=== PATIENT | male | born 1975 | race African-American/Black ===

== ENCOUNTER 2016-05-28 10:25 | Emergency (ER) | payer OTHER ==
[~2016-05-28] VITALS: Ht 182.9 cm; Wt 129.3 kg
[~2016-05-28 10:25] MED LIST: AUGMENTIN 875 M1 TAB PO; PREDNICOT20 MG PO; TESSALON PERLE100 MG PO
[2016-05-28 10:28] VITALS: BP 138/86
[2016-05-28] MEDS ORDERED: ORPHENADRINE C100 MG PO (11:42)
[2016-05-28] MEDS ORDERED: ULTRAM50 M1 PO (11:42)
[2016-05-28] MEDS ORDERED: NAPROSYN500 M1 PO (11:42)
--- NOTE | 2016-05-28 11:44 | ED NECK/BACK PAIN COMPLAINT ---
History of Present Illness General Chief Complaint: Low Back Pain/Injury Stated Complaint: LOWER BACK PAIN Source: patient Exam Limitations: no limitations Vital Signs & Intake/Output Vital Signs & Intake/Output Vital Signs Date Time Temp Pulse Resp B/P Pulse O2 O2 Flow FiO2 Ox Delivery Rate 05/28 1028 96.9 105 20 138/86 98 Room Air Allergies Coded Allergies: NO KNOWN ALLERGIES (04/06/14) Reconcile Medications AMOXICILLIN/POTASSIUM CLAV (Augmentin 875-125 Tablet) 875 MG/125 MG TAB 1 TAB PO BID SINUSITIS Benzonatate (Tessalon Perle) 100 MG CAPSULE 1 TAB PO TID COUGH Prednisone (Prednicot) 20 MG TAB 2 TAB PO DAILY SORE THROAT Triage Note: PT TO ED C/O LOW BACK PAIN X 1.5 WEEKS. DENIES ANY OBVIUOS INJURY. PAIN RADIATES DOWN B/L LEGS. HAS BEEN TAKING MOTRIN WITH NO RELIEF. Triage Nurses Notes Reviewed? yes HPI: Patient presents for evaluation of a bilateral low back pain that began suddenly about 2 weeks ago after picking up a car engine. He states the pain has been more or less constant but fluctuates in intensity and gets worse with exertion. It reaches a 10 out of 10 in intensity. He states he has an appointment pending with an career information specialist in 2 weeks. He denies urinary or fecal incontinence or urinary retention or saddle paresthesias. He's been taking 600 mg of ibuprofen without relief. The pain is described as a sharp pain that does not radiate. He denies any prior episodes of back pain. Past History Travel History Traveled to [place] past 21 day No Medical History Any Pertinent Medical History? see below for history Endocrine: diabetes Surgical History Surgical History: non-contributory Psychosocial History What is your primary language Malay Tobacco Use: Current Not Daily ETOH Use: denies use Illicit Drug Use: denies illicit drug use Family History Hx Contributory? No Review of Systems Review of Systems Constitutional: Reports: no symptoms. Eyes: Reports: no symptoms. Ears, Nose, Throat, Mouth: Reports: no symptoms. Respiratory: Reports: no symptoms. Cardiovascular: Reports: no symptoms. Gastrointestinal/Abdominal: Reports: no symptoms. Musculoskeletal: Reports: see HPI. Skin: Reports: no symptoms. Neurological/Psychological: Reports: no symptoms. All Other Systems: Reviewed and Negative Physical Exam Physical Exam Neck: SEE BELOW Comments: Gen.: Well-nourished, well-developed, no acute respiratory distress. Head: Normocephalic, atraumatic. Eyes: Normal inspection bilaterally Ears: Normal inspection bilaterally Nose: Normal inspection, nasal cannula in place Throat/mouth : Moist mucosa Neck: Supple, full range of motion, no goiter Heart: Regular rate and rhythm Lungs: Quiet respirations Back: Decreased range of motion due to pain, tenderness of the sacroiliac joints bilaterally without associated soft tissue swelling or ecchymoses. Extremities: Normal lower extremity strength and deep tendon reflexes and sensation to light touch bilaterally (no saddle paresthesia). Straight leg raise test negative Neurologic: Cranial nerves grossly intact, speech is clear Skin: warm and dry Psychiatric: Calm, cooperative, no apparent delusions or hallucinations Progress Differential Diagnosis: cauda equina syn, herniated disc, myofascial strain Plan of Care: See discharge instructions Comments: Patient denies cancer unexplained weight loss or immunosuppression, denies IV drug abuse urinary tract infection history of cancer or recent trauma. Denies pain increased by rest or associated fever. Denies bowel or bladder incontinence or urinary retention. Denies saddle paresthesias or major motor weakness. Departure Departure Disposition: HOME OR SELF CARE Condition: Stable Clinical Impression Primary Impression: Low back strain Qualifiers: Encounter type: initial encounter Qualified Code: S39.012A - Strain of muscle, fascia and tendon of lower back, initial encounter Referrals: CRISPIN RAZO MD (PCP/Family) Additional Instructions: Medications as prescribed. Rest, no exertion or heavy lifting. Follow-up with the orthopedic doctor as soon as possible for reevaluation and further testing is indicated. Return if any concerns or sudden worsening. Departure Forms: Customer Survey General Discharge Information Prescriptions: Current Visit Scripts Naproxen (Naprosyn) 1 TAB PO BID #20 TAB Orphenadrine Citrate 1 TAB PO BIDP PRN MUSCLE SPASMS #20 TAB Tramadol HCl (Ultram) 1-2 TAB PO Q6P PRN PAIN #10 TAB
[2016-05-28] MEDS ORDERED: GLIMEPIRIDE1 M1 PO (11:50)
[2016-05-28] MEDS ORDERED: PANTOPRAZOLE SO40 M1 PO (11:51)
== END 2016-05-28 11:55 ==
LOC: ERH 10:25
DX: S39.012A Strain of muscle, fascia and tendon of lower back, initial encounter (principal); X50.0XXA Overexertion from strenuous movement or load, initial encounter; Y93.89 Activity, other specified

== ENCOUNTER 2017-05-26 11:25 | Emergency (ER) | payer OTHER ==
[~2017-05-26] VITALS: Ht 182.9 cm; Wt 102.1 kg
[~2017-05-26 11:25] MED LIST changes: +CHERATUSSIN AC118 M1 PO; +GLIMEPIRIDE1 M1 PO; +NAPROSYN500 M1 PO; +ORPHENADRINE C100 MG PO; +PANTOPRAZOLE SO40 M1 PO; +ULTRAM50 M1 PO; +ZITHROMAX250 M2 PO
[2017-05-26 11:53] VITALS: BP 128/79
--- NOTE | 2017-05-26 12:04 | ED GENERAL ADULT ---
See Addendum History of Present Illness General Chief Complaint: Upper Respiratory Sx/Fever Stated Complaint: URI Source: patient Exam Limitations: no limitations Vital Signs & Intake/Output Vital Signs & Intake/Output Vital Signs Date Time Temp Pulse Resp B/P B/P Pulse O2 O2 Flow FiO2 Mean Ox Delivery Rate 05/26 1153 98.0 94 18 128/79 99 Room Air Allergies Coded Allergies: NO KNOWN ALLERGIES (04/06/14) Reconcile Medications Azithromycin (Zithromax) 250 MG TABLET 1 DP PO AD URI 2 the first day followed by 1 for days 2-5 Codeine Phosphate/Guaifenesi (Cheratussin AC Syrup) 10 MG-100 MG/5 ML LIQUID 10 ML PO Q4-6H PRN COUGH Glimepiride 1 MG TABLET 1 TAB PO DAILY DM (Reported) Pantoprazole Sodium 40 MG TABLET.DR 1 TAB PO DAILY GI (Reported) Triage Note: PT TO ED FOR URI S/S AND SORE THROAT X SEVERAL DAYS. Triage Nurses Notes Reviewed? yes Onset: Abrupt Duration: day(s): Timing: recent history (S DAYS) HPI: 05/26/17 42-year-old man presents with cough, sore throat, nasal congestion and fever. He says is coughing up green, sputum. He denies any past medical history. No history of asthma. No SOB. Past History Travel History Traveled to [place] past 21 day No Medical History Any Pertinent Medical History? 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 No Review of Systems Review of Systems Constitutional: Denies: fever. EENTM: Reports: nasal congestion. Respiratory: Reports: cough. Cardiovascular: Denies: chest pain. GI: Denies: abdominal pain. Genitourinary: Reports: no symptoms. Musculoskeletal: Reports: muscle pain. Skin: Denies: rash. Neurological/Psychological: Reports: no symptoms. Hematologic/Endocrine: Reports: no symptoms. Immunologic/Allergic: Reports: no symptoms. Physical Exam Physical Exam General Appearance: well developed/nourished, alert, awake, anxious Head: atraumatic, normal appearance Eyes: Bilateral: normal appearance, PERRL, EOMI. Ears, Nose, Throat: nasal congestion Neck: normal inspection, supple, full range of motion Respiratory: normal breath sounds Cardiovascular: regular rate/rhythm Peripheral Pulses: 4+ radial (R), 4+ radial (L) Gastrointestinal: soft, non-tender Back: normal range of motion Extremities: no edema Neurologic/Psych: no motor/sensory deficits, awake, alert, oriented x 3 Skin: intact, normal color, warm/dry Core Measures ACS in differential dx? No CVA/TIA Diagnosis: No Sepsis Present: No Sepsis Focused Exam Completed? No Progress Differential Diagnoses I considered the following diagnoses in my evaluation of the patient: [ Bronchitis, pharyngitis, influenza, viral syndrome, pneumonia] Plan of Care: Orders Procedure Date/time Status THROAT CULTURE W/QUICK STREP 05/26 1147 Active RAPID VIRAL INFLUENZA A 05/26 1127 Complete Microbiology 05/26 1151 NASOPHARYN: Influenza Virus A & B Rapid Smear - COMP Initial ED EKG: none Departure Departure Disposition: STILL A PATIENT Condition: Stable Clinical Impression Primary Impression: Viral syndrome Secondary Impressions: Bronchitis Referrals: Lauryn SHEARER,Evan Castaneda (PCP/Family) Departure Forms: Customer Survey General Discharge Information Comments He says he has diet controlled diabetes. This is type II. He has been ill for 3 days. Nasal congestion and fever. He has cough productive of green sputum.. Critical Care Note Critical Care Note Critical Care Time: non-applicable
[2017-05-26] MEDS ORDERED: CODITUSSIN AC473 M1 PO (12:26)
[2017-05-26] MEDS ORDERED: VIBRAMYCIN100 MG PO (12:26)
[2017-05-26] MEDS ORDERED: IBUPROFEN600 M1 PO (12:26)
== END 2017-05-26 12:35 ==
LOC: ERH 11:25
DX: B34.9 Viral infection, unspecified (principal); J40 Bronchitis, not specified as acute or chronic; E11.9 Type 2 diabetes mellitus without complications
CPT/HCPCS: 87804; 87804-59